=== PATIENT | male | born 1960 | race Hispanic/Latino ===

== ENCOUNTER 2020-05-30 06:40 | Inpatient (IN) | payer OTHER ==
[2020-05-30] MEDS ORDERED: Ondansetron PF 4 MG/2 ML Vial ONE (06:47)
[2020-05-30] MEDS ORDERED: Morphine 4 MG/ML VIAL ONE ×2 (06:47→09:08)
[2020-05-30 07:22] LABS: ALT (SGPT) 598 U/L (8-55); AST (SGOT) 280 U/L (5-34); Alkaline Phosphatase 983 U/L (40-110); Anion Gap 17 mmol/L (10-20); BUN (Urea Nitrogen) 17 mg/dL (8.4-25.7); Bilirubin, Total 0.8 mg/dL (0.2-1.2); Calc. Creatinine Clearance 0 mL/min (70-130); Calcium 9.2 mg/dL (7.8-10.44); Carbon Dioxide 24 mmol/L (22-29); Chloride 100 mmol/L (98-107); Estimated GFR-MDRD 61; Globulin 2.8 g/dL (2.4-3.5); Glucose 93 mg/dL (70-105); Lipase 27 U/L (8-78); Potassium 4.5 mmol/L (3.5-5.1); Protein, Total 6.8 g/dL (6.0-8.3); Sodium 136 mmol/L (136-145)
[2020-05-30 07:35] LABS: Hemoglobin 17.4 g/dL (14.0-18.0); Mean Corpuscular HGB CONC 33.7 g/dL (32.0-36.0); Mean Corpuscular Hemoglobin 30.1 pg (27.0-31.0); Mean Corpuscular Volume 89.2 fL (78.0-98.0); Mean Platelet Volume 9.6 fL (7.4-10.4); Platelet Count 90 thou/uL (130-400); RBC Distribution Width 13.7 % (11.5-14.5); Red Blood Cell (RBC) Count 5.79 mill/uL (4.70-6.10)
[2020-05-30 07:36] LABS: Band 3 % (5-11); Eosinophils 1 % (0-10); Lymphocytes 22 % (21-51); MDiff Complete? YES; Monocytes 3 % (0-10); Neutrophil 53 % (42-75); Platelet Morphology Comment Appears Decreased; Reactive Lymphocytes 8 % (0-10); Reflex for Review?? YES
[2020-05-30 08:17] LABS: Bacteria/HPF None Seen HPF (None Seen); Bilirubin 1+ (Negative); Blood, Urine Negative (Negative); Clarity Clear (Clear); Glucose, Urine (Dipstick) Normal (Negative); Ketone, Urine Negative (Negative); Leukocyte Negative Leu/uL (Negative); Nitrite Negative (Negative); Protein, Urine (Dipstick) 50 mg/dL (Neg-Trace); RBC/HPF 0-3 HPF (0-3); Specific Gravity, Urine 1.029 (1.002-1.036); Squamous Epithelial 0-3 HPF (0-3); WBC/HPF 0-3 HPF (0-3)
[2020-05-30 08:26] LABS: HIV (1/2) Antibody/Antigen Non-Reactive (NonReactive); HIV 1/2 INDEX 0.06 S/CO (<1.00)
--- NOTE | 2020-05-30 08:34 | CT ---
Exam: Chest CT with contrast Abdomen CT with contrast Pelvic CT with contrast HISTORY: Abdominal pain. Left upper quadrant pain. Symptoms are worsening for last month. Correlation: None COMPARISON: None FINDINGS: Chest CT: Mediastinum: Extensive mediastinal lymphadenopathy. Rolling Attendant enlarged right paratracheal lymph node measures 1.9 x 1.0 cm. Lower neck and axilla: There are enlarged right and left axillary lymph nodes measuring 1.4 x 1.8 and 1.3 x 1.1 cm respectively. Aorta: Normal caliber. Minimal atherosclerosis. Heart: Normal heart size. No significant pericardial fluid. Trachea and central bronchi: Patent Pleural spaces: No pleural effusion Right lung: Dependent atelectatic changes. Mild emphysematous changes without mass, consolidation or suspicious nodule. Left lung:Dependent atelectatic changes. Mild emphysematous changes without mass, consolidation or harper spicious nodule. Pneumothorax: None Abdomen CT: Gallbladder: Unremarkable Portal vein: Patent Liver: Homogeneous enhancement. There is mild hepatomegaly.. Spleen: There is splenomegaly with ill-defined hypodensities in the spleen, measuring 2.6 x 2.5 and 2 .8 x 2.3 cm. Spleen is enlarged measuring 19.7 cm. Pancreas: Appropriate enhancement Adrenal glands: Appropriate enhancement Lymphadenopathy: Markedly enlarged lymph nodes noted in the gastrohepatic ligament, periportal region . Rolling Attendant enlarged gastric hepatic lymph node measures 1.4 x 1.5 cm. Enlarged. Portal lymph node measures 4.4 x 2.9 cm. Additional lymph nodes are noted in the epigastric region. Kidneys: Symmetric enhancement. No obstructive uropathy. Mesentery: No mass, free air or free fluid. There are scattered mildly enlarged mesenteric lymph node s. There are enlarged aortocaval lymph nodes. Rolling Attendant lymph node measures 1.6 x 1.4 cm. Alimentary canal: Limited evaluation by the lack of oral contrast. No evidence of a bowel obstruction . Normal ileocecal junction. Normal caliber appendix. Scattered fecal material in a nondistended, nondilated colon. Occasional diverticulum. No diverticulitis. Pelvis CT: Pelvic mass, or free air. There is a trace amount of free fluid in the pelvis. Urinary bladder is unr emarkable. There are large bilateral inguinal/external iliac lymph nodes. Additional mildly enlarged lymph nodes are noted along the external iliac chain. Osseous structures:There are no lytic or blastic lesions in the osseous. IMPRESSION: 1. Extensive lymphadenopathy and splenomegaly. Findings are worrisome for possible lymphoma. Percutan eous CT-guided biopsy versus ultrasound-guided biopsy of the axillary lymph nodes recommended tissue diagnosis.
--- NOTE | 2020-05-30 09:27 | CT ---
CT NECK SOFT TISSUES WITH CONTRAST: DATE: 05/30/2020. TIME: 7:53 AM. HISTORY: A 59-year-old male with neck pain, sore throat with purulent drainage. FINDINGS: The bilateral palatine tonsils are enlarged, but the right one is asymmetrically significantly larger than the left. The lingual tonsil is mildly enlarged. The adenoids are not enlarged. There is an abnormally large number of mildly enlarged cervical lymph nodes including levels IB, II, III, IV, and V bilaterally. Many of them are less than 1 cm but abnormally round in shape. Others a re larger than 1.5 cm. The largest is a right supraclavicular level IV lymph node measuring approxima tely 2.7 x 2.7 x 2.4 cm. There is partial visualization of a large number of abnormally enlarged mediastinal lymph nodes and b ilateral axillary lymph nodes. No major pathology identified involving larynx or thyroid gland. Trachea is patent. 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 No abscess. No destructive osseous lesion. IMPRESSION: 1. Diffuse bilateral pathologic cervical, mediastinal, and axillary lymphadenopathy. Malignant neop lastic process is highly suspected, especially lymphoma, and other lymphoproliferative disorders. 2. Enlargement of bilateral palatine tonsils, right side asymmetrically much larger than left. This could either represent malignancy such as lymphoma or squamous cell carcinoma, or infection, i.e. to nsillitis. Given the other findings, lymphoma is favored. CODE T
--- NOTE | 2020-05-30 10:19 | PDOC.HHP ---
Hospitalist HPI - History of Present Illness Abdominal pain History of Present Illness: PCP: Priti Connell The patient is a 59-year-old male with a past medical history significant for smoking presents to the emergency room for the above complaint. The patient reports feeling generally unwell over the past month. Approximately 3 weeks ago, he developed some epigastric discomfort, described as "indigestion", exacerbated with deep inhalation, relieved by nothing. At that time, he denied any SOB or cough. No heart palpitations or swelling his lower extremities. No history of DVT/PE. Smoking is his only cardiovascular risk factor. He does not use any illicit drugs. He was seen at an [facility], swabbed for COVID infection, which was negative. He also had a chest x-ray which was unremark able.He was given medication for acid reflux and steroid for respiratory symptoms. Approximately 1 week later, he developed a sore throat and had some abdominal discomfort. His reports that his right tonsil "looked swollen and infected". He believes his right tonsil "popped open", expressing purulent drainage, which he swallowed. At that time, he reported odynophagia. He denied any dysphagia or difficulty breathing. Denied any fever or chills. Denies any hematemesis, diarrhea, hematochezia, melena. He was tested for hepatitis A, B, and C which he reports was negative. He was prescribed Augmentin, which he has not completed yet. Today, he developed severe left-sided abdominal pain, so intense that he felt like he had to crawl on the floor and could not walk. Reports some associated nausea which is exacerbated with eating. Reports a decreased oral intake. Reports some associated dark-colored urine, reports stooling per usual. Denies dysuria. Denies any hematochezia or melena. He has had no fever. For these reasons, he came to the emergency department for further evaluation. ED Course: VITAL SIGNS ThuMay 30, 2020 06:42 CRYS [place] Brianna BP: 142/94, Pulse: 107, Resp: 20, Temp: 98.1 (Oral), Pain: 10, O2 sat: 98 on (Room Air), Time: 05/30/2020 06:42. VITAL SIGNS ThuMay 30, 2020 06:54 CRYS [place] Julia BP: 132/105, Pulse: 104, Resp: 20, Pain: 8, O2 sat: 99 on (Room Air), Time: 05/30/2020 06:54. VITAL SIGNS ThuMay 30, 2020 07:30 CRYS [place] Melanie BP: 153/96, MAP: 115, Pulse: 131, Resp: 19, Pain: 8, O2 sat: 99 on (Room Air), Time: 05/30/2020 07:30. VITAL SIGNS ThuMay 30, 2020 08:30 CRYS [place] Melanie BP: 129/91, MAP: 103, Pulse: 99, Resp: 16, O2 sat: 99 on (Room Air), Time: 05/30/2020 08:30. Medication Administration: morphine injection 4 mg IV Push Given 09:14 05/30/2020 ondansetron HCl intravenous 4 mg IV Push Given 06:52 05/30/2020 morphine injection 4 mg IV Push Given 06:52 05/30/2020 Hospitalist ROS - Review of Systems Constitutional: reports: malaise (X1 month). denies: fever, chills ENT: reports: throat pain (Reports expressing purulent drainage) Respiratory: reports: pleuritic pain (With deep inhalation). denies: cough, shortness of breath Cardiovascular: denies: chest pain, palpitations, edema, light headedness Gastrointestinal: reports: nausea, abdominal pain (Left-sided). denies: vomiting, diarrhea, constipation, melena, hematochezia Genitourinary: reports: other (Reports darkened urine). denies: dysuria, frequency, hematuria Skin: denies: rash, bruising Neurological: denies: incoordination, change in speech, confusion All other systems reviewed; all pertinent +/- noted in HPI/Subj - Medication Medications: omeprazole ThuMay 30, 2020 06:50 CRYS [place] Julia capsule,delayed release(DR/EC) : Strength - 40 mg : ORAL Patient Dose: 40 mg Oral once a day. predniSONE ThuMay 30, 2020 06:50 CRYS [place] Julia tablet : Strength - 10 mg : ORAL Patient Dose: 10 mg Oral 4 times a day. amoxicillin-pot clavulanate ThuMay 30, 2020 06:51 CRYS [place] Julia tablet : Strength - 500 mg-125 mg : ORAL Patient Dose: 1 tab(s) Oral 2 times a day. Allergies: NKDA Hospitalist History - Past Medical History Source: patient, family, RN notes reviewed Cardiac: reports: no pertinent history Pulmonary: reports: no pertinent history MOHEL: reports: no pertinent history Gastrointestinal: reports: no pertinent history - Past Surgical History Past Surgical History: reports: Hernia Repair - Family History Family History: denies: cancer, cardiac disorder, cerebrovascular accident - Social History Smoking Status: Current every day smoker (2 packs/day x 40 years) Tobacco Type: cigarettes Alcohol: reports: None Drugs: reports: none Living Situation: With Family Occupation: Works for [employer] Activity level: independent ambulation - Exam General Appearance: NAD, awake alert Eye: PERRL, anicteric sclera ENT: normocephalic atraumatic, dry oral mucosa ENT - other findings: Bilateral cervical lymphadenopathy, nontender to palpation Neck: supple, symmetric, no JVD Heart: RRR, no murmur, no gallops, no rubs, normal peripheral pulses Respiratory: CTAB, no wheezes, no rales, no ronchi, normal chest expansion, no tachypnea Gastrointestinal: soft, normal bowel sounds, no bruit, no guarding, no rigidity, tender to palpation (Mildly tender to palpation left side), distended (Mildly) Gastrointestinal - other findings: Negative Gore sign Extremities: no cyanosis, no edema Skin: no rashes Neurological: normal sensation to touch, no weakness, no focal deficits Musculoskeletal: normal tone, normal strength Psychiatric: normal affect, A&O x 3 Hospitalist Results - Labs Result Diagrams: 05/30/20 06:52 05/30/20 06:52 Lab results: WBC 15.0 thou/uL (4.8-10.8) H 05/30/20 06:52 Hgb 17.4 g/dL (14.0-18.0) 05/30/20 06:52 Hct 51.6 % (42.0-52.0) 05/30/20 06:52 MCV 89.2 fL (78.0-98.0) 05/30/20 06:52 Plt Count 90 thou/uL (130-400) L 05/30/20 06:52 Band Neuts % (Manual) 3 % (5-11) L 05/30/20 06:52 Sodium 136 mmol/L (136-145) 05/30/20 06:52 Potassium 4.5 mmol/L (3.5-5.1) 05/30/20 06:52 Chloride 100 mmol/L (98-107) 05/30/20 06:52 Carbon Dioxide 24 mmol/L (22-29) 05/30/20 06:52 BUN 17 mg/dL (8.4-25.7) 05/30/20 06:52 Creatinine 1.21 mg/dL (0.7-1.3) 05/30/20 06:52 Glucose 93 mg/dL (70-105) 05/30/20 06:52 Calcium 9.2 mg/dL (7.8-10.44) 05/30/20 06:52 Total Bilirubin 0.8 mg/dL (0.2-1.2) 05/30/20 06:52 AST 280 U/L (5-34) H 05/30/20 06:52 ALT 598 U/L (8-55) H 05/30/20 06:52 Alkaline Phosphatase 983 U/L (40-110) H 05/30/20 06:52 Creatine Kinase 10 U/L (30-200) L 05/30/20 06:52 Serum Total Protein 6.8 g/dL (6.0-8.3) 05/30/20 06:52 Albumin 4.0 g/dL (3.5-5.0) 05/30/20 06:52 Lipase 27 U/L (8-78) 05/30/20 06:52 Urine Ketones Negative mg/dL (Negative) 05/30/20 08:03 Urine Blood Negative (Negative) 05/30/20 08:03 Urine Nitrite Negative (Negative) 05/30/20 08:03 Ur Leukocyte Esterase Negative Arsenio/uL (Negative) 05/30/20 08:03 Urine RBC 0-3 HPF (0-3) 05/30/20 08:03 Urine WBC 0-3 HPF (0-3) 05/30/20 08:03 Ur Squamous Epith Cells 0-3 HPF (0-3) 05/30/20 08:03 Urine Bacteria None Seen HPF (None Seen) 05/30/20 08:03 - Radiology Interpretation CT scan - chest Status: report reviewed by me Additional Comment: IMPRESSION: 1. Extensive lymphadenopathy and splenomegaly. Findings are worrisome for possible lymphoma. Percutaneous CT-guided biopsy versus ultrasound-guided biopsy of the axillary lymph nodes recommended tissue diagnosis. Other Status: report reviewed by me Additional Comment: CT soft tissue Neck IMPRESSION: 1. Diffuse bilateral pathologic cervical, mediastinal, and axillary lymphadenopathy. Malignant neoplastic process is highly suspected, especially lymphoma, and other lymphoproliferative disorders. 2. Enlargement of bilateral palatine tonsils, right side asymmetrically much larger than left. This could either represent malignancy such as lymphoma or squamous cell carcinoma, or infection, i.e. tonsillitis. Given the other findings, lymphoma is favored. Hospitalist H&P A/P - Problem (1) Abdominal pain Code(s): R10.9 - UNSPECIFIED ABDOMINAL PAIN Status: Acute (2) Transaminitis Code(s): R74.0 - NONSPEC ELEV OF LEVELS OF TRANSAMNS & LACTIC ACID DEHYDRGNSE Status: Acute (3) Sore throat Code(s): J02.9 - ACUTE PHARYNGITIS, UNSPECIFIED Status: Acute (4) Thrombocytopenia Code(s): D69.6 - THROMBOCYTOPENIA, UNSPECIFIED Status: Acute (5) Tobacco abuse Code(s): Z72.0 - TOBACCO USE Status: Acute - Plan Plan: 59/M with PMH of smoking presents to the emergency department for severe abdominal pain and sore throat. Admit to oncology floor, inpatient status. Expected length of stay greater than 2 midnights. Presented tachycardic with normal BP, RR, SPO2, afebrile. CT soft tissue neck 1. diffuse bilateral pathological cervical, mediastinal and axillary lympha denopathy. Malignant neoplastic process is highly suspected, especially lymphoma, and other lymphoproliferative disorders. 2. Enlargement of bilateral palatine tonsils, right greater than left, could represent malignancy versus infection. Given other findings, lymphoma is favored. CT chest, abdomen, pelvis Extensive lymphadenopathy and splenomegaly. Worrisome for possible lymphoma. Recommend CT-guided biopsy versus ultrasound-guided biopsy of axillary lymph nodes. WBCs 15, platelets 90 T bili 0.8, AST 280, ALT 598, ALP 983, lipase 27 HIV negative. UA + urobilinogen, bilirubin, protein #Abdominal pain Given CT findings, malignant neoplastic process is highly expected, concern for lymphoma. Consult oncology. IV fluids, analgesia, antiemetics, PPI. Clear liquid diet. Repeat labs in a.m. #Transaminitis Reports recently tested negative for hepatitis A, B, and C. We will order RUQ. Consult GI. Avoid hepatotoxic medications. Recheck levels in a.m. #Sore throat Presented tachycardic with elevated WBCs. CT, cannot rule out infectious process. Will start Unasyn IVPB. Check LA and pro calcitonin. Give IV fluids. #Thrombocytopenia Platelets 90. Likely related to malignant process. No signs of bleeding/excessive bruising. Recheck levels in the a.m. #Tobacco abuse 2 pack/day history. Unwilling to quit. Start NRT therapy. Counseled tobacco cessation. SCDs for DVT prophylaxis. Protonix for GI prophylaxis. Full code. Medical power of health care attorney is his spouse Kelly at [phone]. Discussed case with Dr. Carlton.
[2020-05-30] MEDS ORDERED: Senokot S 8.6-50 MG TAB PO PRN (10:30)
[2020-05-30] MEDS ORDERED: Ondansetron ODT 4 MG TAB PO PRN (10:30)
[2020-05-30] MEDS ORDERED: Calcium Carbonate 500 MG ChewTAB PO PRN (10:30)
[2020-05-30] MEDS ORDERED: Morphine 4 MG/ML VIAL SLOW IVP PRN (10:33)
[2020-05-30] MEDS ORDERED: traMADol HCl 50 MG TAB PO PRN (10:35)
[2020-05-30 10:37] VITALS: BMI 25.2
[2020-05-30] MEDS ORDERED: Ondansetron PF 4 MG/2 ML Vial IVP PRN (10:45)
[2020-05-30] MEDS ORDERED: Ondansetron ODT 4 MG TAB SL PRN (10:45)
[2020-05-30] MEDS ORDERED: Acetaminophen 325 MG TAB PO PRN (10:45)
[2020-05-30] MEDS ORDERED: HYDROcodone/Acetaminophen 5/325 mg Tablet PO PRN ×2 (10:45)
[2020-05-30 11:09] LABS: Lactic Acid 1.4 mmol/L (0.5-2.2)
[2020-05-30] MEDS ORDERED: Lidocaine 2% Viscous Solution 10 ML, Aluminum & Magnesium Hydroxide 30 ML SSW SCH (11:15)
[2020-05-30] MEDS ORDERED: Clindamycin/D5W 600 MG in Premix Bag 1 BAG IVPB SCH (12:00)
[2020-05-30] MEDS ORDERED: Nicotine 14 MG PATCH TD SCH (12:00)
--- NOTE | 2020-05-30 12:19 | ULT ---
[facility] COMPARISON:None available HISTORY:Left upper quadrant pain, elevated liver enzymes TECHNIQUE: Multiplanar grayscale sonographic imaging of theright upper quadrant FINDINGS:The pancreas is grossly unremarkable but partially obscured by bowel gas, particularly the r egion of the pancreatic head. No focal liver lesion or intrahepatic biliary dilatation. There are enlarged lymph nodes in the christina hepatis, better evaluated on CT examination also performe d 05/30/2020. No gallbladder wall thickening or pericholecystic fluid. No gallstones are noted. The common bile duct measures 3 mm, within normal limits. The right kidney measures 11 cm in craniocaudal dimension and demonstrates no stone, hydronephrosis, or mass. 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 IMPRESSION: Christina hepatis lymphadenopathy suspicious for lymphoma/metastatic disease. No evidence for cholelithiasis, cholecystitis, or biliary dilatation.
[2020-05-30] MEDS: Sodium Chloride 0.9% 1,000 ML IV SCH ×2 (12:39→23:54)
[2020-05-30] MEDS: Ampicillin/Sulbactam 1.5 GM in Sodium Chloride 0.9% 100 ML IVPB SCH ×3 (12:49→23:56)
[2020-05-30] MEDS: Morphine 4 MG/ML VIAL SLOW IVP PRN ×3 (12:55→23:59)
[2020-05-30] MEDS: Ondansetron PF 4 MG/2 ML Vial IVP PRN (13:47)
[2020-05-30] MEDS ORDERED: Promethazine HCl 25 MG in Sodium Chloride 0.9% 50 ML IVPB SCH (15:45)
[2020-05-30] MEDS ORDERED: Iopamidol-370 76% 500 ML 1 ML ONE (16:13)
[2020-05-30 16:54] LABS: SARS-CoV-2 MS2 Positive; SARS-CoV-2 N Gene Negative; SARS-CoV-2 S Gene Negative; SARS-CoV-2 by NAA Not Detected (NotDetected); SARS-CoV-2 orf1ab Negative
[2020-05-30] MEDS ORDERED: Morphine 4 MG/ML VIAL SLOW IVP SCH (20:00)
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
[2020-05-31] MEDS: Morphine 4 MG/ML VIAL SLOW IVP PRN ×2 (04:16→10:55)
[2020-05-31] MEDS: Ampicillin/Sulbactam 1.5 GM in Sodium Chloride 0.9% 100 ML IVPB SCH ×3 (05:17→17:46)
[2020-05-31 06:08] LABS: ALT (SGPT) 356 U/L (8-55); AST (SGOT) 115 U/L (5-34); Albumin 3.3 g/dL (3.5-5.0); Alkaline Phosphatase 710 U/L (40-110); Anion Gap 12 mmol/L (10-20); BUN (Urea Nitrogen) 14 mg/dL (8.4-25.7); Bilirubin, Total 0.7 mg/dL (0.2-1.2); Calc. Creatinine Clearance 83 mL/min (70-130); Calcium 8.1 mg/dL (7.8-10.44); Carbon Dioxide 23 mmol/L (22-29); Chloride 102 mmol/L (98-107); Estimated GFR-MDRD 74; Globulin 2.3 g/dL (2.4-3.5); Glucose 69 mg/dL (70-105); Potassium 4.2 mmol/L (3.5-5.1); Protein, Total 5.6 g/dL (6.0-8.3); Sodium 133 mmol/L (136-145); Uric Acid 6.8 mg/dL (3.5-7.2)
[2020-05-31 06:34] LABS: Band 8 % (5-11); Lymphocytes 20 % (21-51); MDiff Complete? YES; Mean Corpuscular HGB CONC 33.1 g/dL (32.0-36.0); Mean Corpuscular Hemoglobin 29.6 pg (27.0-31.0); Mean Corpuscular Volume 89.4 fL (78.0-98.0); Mean Platelet Volume 9.7 fL (7.4-10.4); Metamyelocyte 1 % (0-0); Monocytes 7 % (0-10); Neutrophil 48 % (42-75); Platelet Count 77 thou/uL (130-400); Platelet Morphology Comment Appears Decreased; RBC Distribution Width 13.6 % (11.5-14.5); Reactive Lymphocytes 6 % (0-10); Red Blood Cell (RBC) Count 5.06 mill/uL (4.70-6.10); White Blood Cell (WBC) Count 15.5 thou/uL (4.8-10.8)
[2020-05-31] MEDS: Nicotine 21 MG PATCH TD SCH (08:42)
[2020-05-31] MEDS: Sodium Chloride 0.9% 1,000 ML IV SCH (08:43)
[2020-05-31] MEDS: Pantoprazole 40 MG VIAL IVP SCH (08:43)
--- NOTE | 2020-05-31 12:47 | PDOC.HOSPP ---
- Subjective Encounter Date: 05/31/20 Encounter Time: 11:40 Subjective: Patient is trying to have baselines he has no trouble swallowing no pain. His pain is mostly localized in the abdominal area. Flow cytometry results pending. - Objective Vital Signs & Weight: Vital Signs (12 hours) Temp Pulse Resp BP BP Pulse Ox 05/31/20 12:00 99.5 F 91 18 159/80 H 95 05/31/20 08:00 98.0 F 93 18 160/78 H 94 L 05/31/20 04:00 98.2 F 94 16 130/78 94 L Weight Weight 170 lb 9 oz I&O: 05/30/20 05/31/20 06/01/20 06:59 06:59 06:59 Intake Total 1680 Balance 1680 Result Diagrams: 05/31/20 05:35 05/31/20 05:35 Hospitalist ROS - Medication Medications: Active Medications Generic Name Dose Route Start Last Admin Trade Name Freq PRN Reason Stop Dose Admin Sodium Chloride 1,000 mls @ 100 mls/hr 05/30/20 10:30 05/31/20 08:43 Normal Saline 0.9% IV 1,000 mls .Q10H BERNARDINO Administration Ampicillin Sodium/Sulbactam 100 mls @ 200 mls/hr 05/30/20 12:00 05/31/20 11:00 Sodium 1.5 gm/ Sodium Chloride IVPB 100 mls Q6HR BERNARDINO Administration Morphine Sulfate 6 mg 05/30/20 19:48 05/31/20 10:55 Morphine 4 Mg/Ml Vial SLOW IVP 6 mg Q4H PRN Administration Moderate to Severe Pain (6-10) Nicotine 21 mg 05/31/20 09:00 05/31/20 08:42 Nicotine 21 Mg Patch TD 21 mg DAILY BERNARDINO Administration Ondansetron HCl 4 mg 05/30/20 10:30 05/30/20 13:47 Ondansetron Pf 4 Mg/2 Ml Vial IVP 4 mg Q6H PRN Administration Nausea/Vomiting Pantoprazole Sodium 40 mg 05/31/20 09:00 05/31/20 08:43 Pantoprazole 40 Mg Vial IVP 40 mg DAILY BERNARDINO Administration Sodium Chloride 10 ml 05/30/20 10:30 05/31/20 04:16 Flush - Normal Saline 10 Ml Syringe IVF 10 ml PRN PRN Administration Saline Flush - Exam General Appearance: NAD, awake alert General - other findings: Cervical lymph node palpable as well as axillary on the left more so Eye: PERRL ENT: normocephalic atraumatic Neck: supple Heart: RRR Respiratory: CTAB, normal chest expansion Gastrointestinal: soft, normal bowel sounds Neurological: cranial nerve grossly intact, no focal deficits Psychiatric: A&O x 3 Hosp A/P - Plan CT soft tissue neck 1. diffuse bilateral pathological cervical, mediastinal and axillary lymphadenopathy. Malignant neoplastic process is highly suspected, especially lymphoma, and other lymphoproliferative disorders. 2. Enlargement of bilateral palatine tonsils, right greater than left, could represent malignancy versus infection. Given other findings, lymphoma is favored. CT chest, abdomen, pelvis Extensive lymphadenopathy and splenomegaly. Worrisome for possible lymphoma. Recommend CT-guided biopsy versus ultrasound-guided biopsy of axillary lymph nodes. #Abdominal pain Given CT findings, malignant neoplastic process is highly expected, concern for lymphoma. #Transaminitis Reports recently tested negative for hepatitis A, B, and C. We will order RUQ. Consulted GI. Avoid hepatotoxic medications. Recheck levels in a.m. #Sore throat Tonsillitis versus malignancy with a squamous cell carcinoma -Needs to follow-up. Will start Unasyn IVPB. #Thrombocytopenia Platelets 90K. Likely related to malignant process. No signs of bleeding/excessive bruising. #Tobacco abuse 2 pack/day history. Unwilling to quit. Start NRT therapy. Counseled tobacco cessation. -Oncology note reviewed. -Continue with Unasyn until more clinical picture evolves. -PET scan as an outpatient. COVID negative HIV negative -LFTs trending down today alkaline phosphatase 03/16/1980 AST 115 ALT 356 Flow cytometry results pending.
[2020-05-31] MEDS ORDERED: HYDROcodone/Acetaminophen 5/325 mg Tablet PO PRN (15:48)
--- NOTE | 2020-05-31 15:51 | PDOC.MOPN ---
Interval History: pain controlled with IV morphine - Vital Signs Vital Signs: Vital Signs (12 hours) Temp Pulse Resp BP BP Pulse Ox 05/31/20 12:00 99.5 F 91 18 159/80 H 95 05/31/20 08:00 98.0 F 93 18 160/78 H 94 L 05/31/20 04:00 98.2 F 94 16 130/78 94 L Weight Weight 170 lb 9 oz - Physical Exam General: Alert, Oriented x3, No acute distress HEENT: Atraumatic, PERRLA, EOMI, Mucous membr. moist/pink Lungs: Clear to auscultation, Normal air movement Abdomen: Normal bowel sounds, Soft, No tenderness, No hepatospenomegaly, No masses Extremities: Other (lymphadenopathy) Neurological: Normal speech - Labs Result Diagrams: 05/31/20 05:35 05/31/20 05:35 Lab results: Laboratory Results - last 24 hr 05/31/20 05:35: Lactate Dehydrogenase 806 H 05/31/20 05:35: WBC 15.5 H, RBC 5.06, Hgb 15.0, Hct 45.2, MCV 89.4, MCH 29.6, MCHC 33.1, RDW 13.6, Plt Count 77 L, MPV 9.7, Neutrophils % (Manual) 48, Band Neuts % (Manual) 8, Lymphocytes % (Manual) 20 L, Reactive Lymphs % 6, Monocytes % (Manual) 7, Metamyelocytes % (Man) 1 H, Other Cell Type 10, Plt Morphology Comment Appears Decreased L 05/31/20 05:35: Sodium 133 L, Potassium 4.2, Chloride 102, Carbon Dioxide 23, Anion Gap 12, BUN 14, Creatinine 1.03, Estimated GFR (MDRD) 74, Glucose 69 L, Uric Acid 6.8, Calcium 8.1, Total Bilirubin 0.7, AST 115 H, ALT 356 H, Alkaline Phosphatase 710 H, Serum Total Protein 5.6 L, Albumin 3.3 L, Globulin 2.3 L, Albumin/Globulin Ratio 1.4 05/30/20 09:56: SARS-CoV-2 (PCR) Not Detected Status: lab reviewed by me A/P - Problem (1) Abdominal pain Current Visit: Yes Code(s): R10.9 - UNSPECIFIED ABDOMINAL PAIN Status: Acute (2) Lymphadenopathy Current Visit: Yes Code(s): R59.1 - GENERALIZED ENLARGED LYMPH NODES Status: Acute (3) Thrombocytopenia Current Visit: Yes Code(s): D69.6 - THROMBOCYTOPENIA, UNSPECIFIED Status: Acute - Plan Plan: 1. await flow cytometry 2. depending on results, may need excisional lymph node biopsy 3. add norco for pain, limit morphine if possible
[2020-05-31] MEDS: HYDROcodone/Acetaminophen 5/325 mg Tablet PO PRN ×2 (16:34→20:38)
[2020-06-01] MEDS: Ampicillin/Sulbactam 1.5 GM in Sodium Chloride 0.9% 100 ML IVPB SCH ×5 (00:03→23:17)
[2020-06-01] MEDS: Sodium Chloride 0.9% 1,000 ML IV SCH ×4 (00:03→19:48)
--- NOTE | 2020-06-01 01:00 | CON ---
DATE OF CONSULTATION: 05/31/2020 REQUESTING PROVIDER: Dr. Murillo. REASON FOR CONSULTATION: Elevated LFTs and abdominal pain. HISTORY OF PRESENT ILLNESS: Maureen Myers is a 59-year-old gentleman with a long history of tobacco abuse, who has otherwise been fairly healthy. About 3 weeks ago, he started having some sore throat and tonsillar swelling and then yesterday, he had a fairly sudden onset of significant pain in the left upper quadrant, which is worse with deep inspiration, not really related to eating or drinking at all. There has been no weight loss and no jaundice. He was actually undergoing some outpatient workup in the past couple of weeks and was found to have significantly elevated LFTs, but the left upper quadrant abdominal pain was new. Upon presentation, he had labs again showing LFT elevation with alkaline phosphatase 983, AST 280, ALT 598, LDH elevated to 806 and a leukocytosis with WBC 15.5, and peripheral smear suspicious for leukemia or lymphoma. He also had a CT of the neck, chest, abdomen, and pelvis and this demonstrates extensive diffuse lymphadenopathy in the cervical, mediastinal, bilateral axillary, periportal, mesenteric, and bilateral iliac regions. There is mild hepatomegaly and there is splenomegaly to 19.6 cm with multiple ill-defined hypodensities. Flow cytometry was sent after Oncology evaluation and is pending. The patient has received morphine and Unasyn. He is feeling a lot better today. He has been tolerating his diet without any difficulty. REVIEW OF SYSTEMS: Full review of systems including constitutional, head, eyes, ears, nose, throat, GI, , cardiovascular, respiratory, musculoskeletal, neurologic systems is negative except as noted in the HPI. PAST MEDICAL HISTORY: Tobacco abuse and inguinal hernia repair. ALLERGIES: NO KNOWN DRUG ALLERGIES. OUTPATIENT MEDICATIONS: Prilosec and albuterol. INPATIENT MEDICATIONS: 1. Unasyn IV. 2. [place] p.r.n. 3. Nicotine patch. 4. Zofran p.r.n. 5. Protonix 40 mg IV daily. FAMILY HISTORY: Negative for malignancy that he is aware of. SOCIAL HISTORY: He has a 60+ pack-year history of smoking. He quit drinking alcohol about 10 years ago. PHYSICAL EXAMINATION: VITAL SIGNS: Temperature 99.5, pulse 91, blood pressure 159/80, and 95% oxygen saturation on room air. GENERAL: No acute distress. HEART: Regular rate and rhythm. LUNGS: Clear to auscultation bilaterally. ABDOMEN: Nondistended. Bowel sounds are present, soft, some tenderness to palpation with palpable splenomegaly in left upper quadrant. No guarding or rebound tenderness. EXTREMITIES: No peripheral edema. VESSELS: Radial pulses 2+ bilaterally. NEURO: Cranial nerves 2 through 12 intact bilaterally. No focal deficits. SKIN: No jaundice. No rashes were palpable. EYES: No scleral icterus. Extraocular movements intact. ENT: Mucous membranes moist. No oral lesions. LYMPH: He has cervical lymphadenopathy and quite striking axillary lymphadenopathy as well as bilateral iliac lymphadenopathy. LABORATORY STUDIES: WBC 15.5, hemoglobin 15.6, and platelets 77. Sodium 133, potassium 4.2, BUN 14, and creatinine 1.03. Total bilirubin 0.7; alkaline phosphatase is 710, down from 983 on admission; AST is 115, down from 280 on admission; ALT is 356, down from 598 on admission. Albumin 3.3. Lipase only 27. LDH elevated to 806. TSH 0.78. PSA 1.36. CK only 10. Viral hepatitis serologies all negative. HIV antibody negative. COVID PCR negative. Flow cytometry pending. Peripheral smear shows findings suspicious for leukemia or lymphoma. IMAGING STUDIES: Abdominal ultrasound shows lymphadenopathy at the dwayne hepatis, but normal-appearing gallbladder and common bile duct. CT of the neck, chest, abdomen, and pelvis demonstrates mild hepatomegaly, normal-appearing gallbladder. There is splenomegaly to 19.6 cm with multiple ill-defined hypodensities. There is extensive cervical mediastinal bilateral axillary, periportal, mesenteric and bilateral iliac lymphadenopathy. ASSESSMENT AND PLAN: 1. Left upper quadrant pain, likely secondary to splenomegaly. 2. Splenomegaly, likely represents presentation of lymphoma. 3. Extensive lymphadenopathy, lymphoma is suspected. Flow cytometry is pending. Oncology is following. 4. Elevated LFTs. I note the negative viral hepatitis serologies, also negative imaging findings for any biliary obstructive process. He does have extensive lymphadenopathy around the dwayne hepatis, but likely he probably has lymphoma infiltration of the liver which is behind the transaminase elevation. It would be reasonable to check EBV and CMV as well as check INR tomorrow morning, can trend the LFTs tomorrow. But really, no other liver specific workup is planned at this time. From a GI perspective, the patient could be discharged from the hospital once a clear plan has been outlined with Oncology followup. Thank you for the consultation. Please call anytime with questions or concerns. Job ID: [id number]
[2020-06-01] MEDS: Ondansetron PF 4 MG/2 ML Vial IVP PRN (03:34)
[2020-06-01 03:59] LABS: INR-International Normal Ratio 0.9; Prothrombin Time 12.4 sec (12.0-14.7)
[2020-06-01] MEDS: HYDROcodone/Acetaminophen 5/325 mg Tablet PO PRN ×4 (04:04→19:47)
[2020-06-01 04:30] LABS: ALT (SGPT) 279 U/L (8-55); AST (SGOT) 103 U/L (5-34); Albumin 3.2 g/dL (3.5-5.0); Alkaline Phosphatase 823 U/L (40-110); Anion Gap 14 mmol/L (10-20); BUN (Urea Nitrogen) 9 mg/dL (8.4-25.7); Bilirubin, Total 1.7 mg/dL (0.2-1.2); Calc. Creatinine Clearance 99 mL/min (70-130); Calcium 8.2 mg/dL (7.8-10.44); Carbon Dioxide 24 mmol/L (22-29); Chloride 103 mmol/L (98-107); Estimated GFR-MDRD 90; Globulin 2.3 g/dL (2.4-3.5); Glucose 82 mg/dL (70-105); Potassium 4.2 mmol/L (3.5-5.1); Protein, Total 5.5 g/dL (6.0-8.3); Sodium 137 mmol/L (136-145)
[2020-06-01] MEDS: Nicotine 21 MG PATCH TD SCH (08:46)
[2020-06-01] MEDS: Pantoprazole 40 MG VIAL IVP SCH (08:50)
--- NOTE | 2020-06-01 12:01 | PRG ---
DATE OF SERVICE: 06/01/2020 SUBJECTIVE: Mr. Myers is doing well. Abdominal discomfort is mild and stable. No nausea at this time. He is eating [place] food for lunch and tolerating it really well. He has no new complaints. OBJECTIVE: VITAL SIGNS: Temperature 97.9, pulse 82, blood pressure 165/88, and 92% oxygen saturation on room air. GENERAL: No acute distress. HEART: Regular rate and rhythm. LUNGS: Clear to auscultation bilaterally. ABDOMEN: Nontender to palpation. EXTREMITIES: No peripheral edema. LABORATORY STUDIES: INR 0.9. CMP shows total bilirubin up to 1.7, alkaline phosphatase 823, AST 103, ALT down to 279, overall LFTs are stable. CMV and Itzel Garirson virus serologies as well as flow cytometry are all pending. ASSESSMENT AND PLAN: 1. Left upper quadrant pain, appears to be secondary to splenomegaly, stable. 2. Extensive lymphadenopathy, lymphoma is suspected. Flow cytometry is still pending. Oncology is following. 3. Elevated liver function tests. Overall, these are stable over the past week. Awaiting Itzel Garrison virus and cytomegalovirus serologies. Viral hepatitis serologies and HIV are negative. Liver function test elevation is likely secondary to liver infiltration with probable lymphoma. Note, the INR is normal, suggesting normal liver function as expected. No other liver specific workup is planned at this time. From a GI perspective, the patient could be discharged from the hospital once a clear plan has been outlined with Oncology followup. GI will sign off. We will follow up results of serologies when they are available. Please call anytime with questions or concerns. Job ID: [id number]
--- NOTE | 2020-06-01 13:58 | PDOC.HOSPP ---
- Subjective Encounter Date: 06/01/20 Encounter Time: 09:10 Subjective: Patient is resting he has no complaints his abdominal pain seems to be better now. He is still waiting for flow cytometry readings which are pending. - Objective Vital Signs & Weight: Vital Signs (12 hours) Temp Pulse Resp BP Pulse Ox 06/01/20 07:33 97.9 F 82 20 165/88 H 92 L Weight Weight 170 lb 9 oz I&O: 05/31/20 06/01/20 06/02/20 06:59 06:59 06:59 Intake Total 1680 2140 Balance 1680 2140 Result Diagrams: 05/31/20 05:35 06/01/20 03:26 Hospitalist ROS - Medication Medications: Active Medications Generic Name Dose Route Start Last Admin Trade Name Freq PRN Reason Stop Dose Admin Hydrocodone Bitart/Acetaminophen 2 tab 05/31/20 15:48 06/01/20 08:48 Hydrocodone/Acetaminophen 5/325 Mg Tablet PO 2 tab Q4H PRN Administration Moderate to Severe Pain (6-10) Sodium Chloride 1,000 mls @ 100 mls/hr 05/30/20 10:30 06/01/20 08:59 Normal Saline 0.9% IV 1,000 mls .Q10H BERNARDINO Administration Ampicillin Sodium/Sulbactam 100 mls @ 200 mls/hr 05/30/20 12:00 06/01/20 12:59 Sodium 1.5 gm/ Sodium Chloride IVPB 100 mls Q6HR BERNARDINO Administration Morphine Sulfate 6 mg 05/30/20 19:48 05/31/20 10:55 Morphine 4 Mg/Ml Vial SLOW IVP 6 mg Q4H PRN Administration Moderate to Severe Pain (6-10) Nicotine 21 mg 05/31/20 09:00 06/01/20 08:46 Nicotine 21 Mg Patch TD 21 mg DAILY BERNARDINO Administration Ondansetron HCl 4 mg 05/30/20 10:30 06/01/20 03:34 Ondansetron Pf 4 Mg/2 Ml Vial IVP 4 mg Q6H PRN Administration Nausea/Vomiting Pantoprazole Sodium 40 mg 05/31/20 09:00 06/01/20 08:50 Pantoprazole 40 Mg Vial IVP 40 mg DAILY BERNARDINO Administration Sodium Chloride 10 ml 05/30/20 10:30 06/01/20 03:34 Flush - Normal Saline 10 Ml Syringe IVF 10 ml PRN PRN Administration Saline Flush - Exam General Appearance: NAD, awake alert Eye: PERRL ENT: normocephalic atraumatic Neck: supple Heart: RRR, normal peripheral pulses Respiratory: CTAB, normal chest expansion Gastrointestinal: soft, normal bowel sounds Neurological: no focal deficits Psychiatric: A&O x 3 Hosp A/P - Plan CT soft tissue neck 1. diffuse bilateral pathological cervical, mediastinal and axillary lymphadenopathy. Malignant neoplastic process is highly suspected, especially l ymphoma, and other lymphoproliferative disorders. 2. Enlargement of bilateral palatine tonsils, right greater than left, could represent malignancy versus infection. Given other findings, lymphoma is favored. CT chest, abdomen, pelvis Extensive lymphadenopathy and splenomegaly. Worrisome for possible lymphoma. Recommend CT-guided biopsy versus ultrasound-guided biopsy of axillary lymph nodes. #Abdominal pain Given CT findings, malignant neoplastic process is highly expected, concern for lymphoma. #Transaminitis Reports recently tested negative for hepatitis A, B, and C. We will order RUQ. Consulted GI. Avoid hepatotoxic medications. Recheck levels in a.m. #Sore throat Tonsillitis versus malignancy with a squamous cell carcinoma -Needs to follow-up. Will start Unasyn IVPB. #Thrombocytopenia Platelets 90K. Likely related to malignant process. No signs of bleeding/excessive bruising. #Tobacco abuse 2 pack/day history. Unwilling to quit. Start NRT therapy. Counseled tobacco cessation. -Oncology note reviewed. -Continue with Unasyn until more clinical picture evolves. -PET scan as an outpatient. COVID negative HIV negative -LFTs trending down today alkaline phosphatase 03/16/1980 AST 115 ALT 356 Flow cytometry results pending. 25th Splenomegaly Left upper quadrant discomfort secondary to splenomegaly Transaminitis elevation probably due to lymphoma infiltration versus meds. -CMV and Itzel-Garrison virus serology pending. Again flow cytometry results pending. -NC is swallowing without any pain, no exudate noted, which Unasyn to Augmentin. Follow-up with flaccid it amatory results as well as oncology recommendations. Once plan is in place by oncologist, then he can be discharged home. GI signed off.
--- NOTE | 2020-06-01 14:20 | PDOC.MOPN ---
Interval History: no complaints other than anxiety over diagnosis. - Vital Signs Vital Signs: Vital Signs (12 hours) Temp Pulse Resp BP Pulse Ox 06/01/20 07:33 97.9 F 82 20 165/88 H 92 L Weight Weight 170 lb 9 oz - Physical Exam General: Alert, Oriented x3, No acute distress HEENT: Atraumatic, PERRLA, EOMI, Mucous membr. moist/pink Lungs: Clear to auscultation, Normal air movement Cardiovascular: Regular rate, Normal S1, Normal S2, No murmurs, Gallops, Rubs Abdomen: Normal bowel sounds, Soft, No tenderness, No hepatospenomegaly, No masses Neurological: Normal speech Psych/Mental Status: Mental status NL - Labs Result Diagrams: 05/31/20 05:35 06/01/20 03:26 Lab results: Laboratory Results - last 24 hr 06/01/20 03:26: PT 12.4, INR 0.9 06/01/20 03:26: Sodium 137, Potassium 4.2, Chloride 103, Carbon Dioxide 24, Anion Gap 14, BUN 9, Creatinine 0.87, Estimated GFR (MDRD) 90, Glucose 82, Calcium 8.2, Total Bilirubin 1.7 H, AST 103 H, ALT 279 H, Alkaline Phosphatase 823 H, Serum Total Protein 5.5 L, Albumin 3.2 L, Globulin 2.3 L, [place] min/Globulin Ratio 1.4 Status: lab reviewed by me A/P - Problem (1) Abdominal pain Current Visit: Yes Code(s): R10.9 - UNSPECIFIED ABDOMINAL PAIN Status: Acute (2) Lymphadenopathy Current Visit: Yes Code(s): R59.1 - GENERALIZED ENLARGED LYMPH NODES Status: Acute (3) Thrombocytopenia Current Visit: Yes Code(s): D69.6 - THROMBOCYTOPENIA, UNSPECIFIED Status: Acute - Plan Plan: 1. flow cytometry pending 2. discussed with Dr. Jo, plan lymph node biopsy 3. home after biopsy if stable 4. continue norco for pain.
[2020-06-02] MEDS: HYDROcodone/Acetaminophen 5/325 mg Tablet PO PRN (02:02)
[2020-06-02] MEDS: Ondansetron PF 4 MG/2 ML Vial IVP PRN ×2 (02:07→08:47)
[2020-06-02] MEDS: Morphine 4 MG/ML VIAL SLOW IVP PRN (02:09)
[2020-06-02 04:54] LABS: Anion Gap 12 mmol/L (10-20); BUN (Urea Nitrogen) 7 mg/dL (8.4-25.7); Calc. Creatinine Clearance 106 mL/min (70-130); Calcium 8.2 mg/dL (7.8-10.44); Carbon Dioxide 26 mmol/L (22-29); Chloride 104 mmol/L (98-107); Estimated GFR-MDRD Greater than 90; Glucose 84 mg/dL (70-105); Sodium 138 mmol/L (136-145)
[2020-06-02 05:00] LABS: Hemoglobin 14.9 g/dL (14.0-18.0); Mean Corpuscular HGB CONC 33.6 g/dL (32.0-36.0); Mean Corpuscular Hemoglobin 29.9 pg (27.0-31.0); Mean Corpuscular Volume 88.9 fL (78.0-98.0); Mean Platelet Volume 10.4 fL (7.4-10.4); Platelet Count 82 thou/uL (130-400); RBC Distribution Width 13.8 % (11.5-14.5); Red Blood Cell (RBC) Count 4.98 mill/uL (4.70-6.10); White Blood Cell (WBC) Count 15.3 thou/uL (4.8-10.8)
[2020-06-02 05:01] LABS: Band 7 % (5-11); Eosinophils 3 % (0-10); Lymphocytes 12 % (21-51); MDiff Complete? YES; Monocytes 16 % (0-10); Neutrophil 44 % (42-75); Platelet Morphology Comment Appears Decreased; Reactive Lymphocytes 7 % (0-10)
[2020-06-02] MEDS: Ampicillin/Sulbactam 1.5 GM in Sodium Chloride 0.9% 100 ML IVPB SCH ×2 (05:45→13:35)
[2020-06-02] MEDS: Nicotine 21 MG PATCH TD SCH (08:12)
[2020-06-02] MEDS: Sodium Chloride 0.9% 1,000 ML IV SCH (08:48)
[2020-06-02] MEDS: Pantoprazole 40 MG VIAL IVP SCH (08:51)
[2020-06-02] MEDS ORDERED: Enoxaparin Sodium 40 MG/0.4 ML SYRINGE SC SCH (09:00)
[2020-06-02] MEDS ORDERED: Succinylcholine Chloride 20 MG/ML 10 ml SYRINGE FS ONE (09:07)
[2020-06-02] MEDS ORDERED: Lidocaine 1% PF 5 ML VIAL ONE (09:07)
[2020-06-02] MEDS ORDERED: Dexamethasone 20 MG/5 ML VIAL ONE (09:07)
[2020-06-02] MEDS ORDERED: PROPOFOL 200 MG/20 ML VIAL ONE (09:07)
[2020-06-02] MEDS ORDERED: Ondansetron PF 4 MG/2 ML Vial ONE (09:07)
[2020-06-02 09:41] VITALS: BP 162/78; TEMP 97.7
[2020-06-02] MEDS ORDERED: Bisacodyl 10 MG SUPP PR PRN (10:06)
[2020-06-02] MEDS ORDERED: Metoclopramide HCl 10 MG/2 ML VIAL ONE ×2 (11:54→12:16)
[2020-06-02] MEDS ORDERED: Scopolamine 1.5 mg/72 hour Patch ONE (11:54)
[2020-06-02] MEDS ORDERED: Famotidine/PF 20 mg/2ml Vial ONE (11:54)
[2020-06-02] MEDS ORDERED: Fentanyl 100 MCG/2 ML VIAL ONE (12:52)
[2020-06-02] MEDS ORDERED: Lidocaine 2% Jelly 5 ML TUBE ONE (12:52)
[2020-06-02] MEDS ORDERED: Midazolam HCl 2 mg/2 ml Vial ONE (12:52)
[2020-06-02] MEDS ORDERED: Bupivacaine/Epinephrine 0.25% 30 ML VIAL ONE (13:42)
[2020-06-02] MEDS ORDERED: Promethazine HCl 25 MG/ML VIAL IM PRN (13:46)
[2020-06-02] MEDS ORDERED: Ondansetron HCl/PF 4 MG/2 ML Vial IVP PRN (13:46)
[2020-06-02] MEDS ORDERED: Promethazine HCl 25 MG/ML VIAL SLOW IVP PRN (13:46)
--- NOTE | 2020-06-02 19:28 | OP ---
DATE OF PROCEDURE: 06/02/2020 PREOPERATIVE DIAGNOSIS: Diffuse lymphadenopathy. POSTOPERATIVE DIAGNOSIS: Diffuse lymphadenopathy. PROCEDURES PERFORMED: Excision of right axillary lymph node. ANESTHESIA: General. ESTIMATED BLOOD LOSS: Minimal. COMPLICATIONS: None. SPECIMENS: Right axillary node. DESCRIPTION OF PROCEDURE: The patient was taken to operating room and laid supine on the operating room table. After general anesthetic was obtained, the right axilla was shaved, prepped, and draped in a sterile fashion. A curved incision was made along the inferior hairline of the right axilla. Cautery was used to dissect down through clavipectoral fascia. A large mass of lymph node was encountered. A portion of one of the larger lymph nodes was taken using cautery. The residual lymph node bed was cauterized until no more bleeding. The specimen was sent to Path for final diagnosis. The wound was irrigated. Local anesthetic was applied. The wound was closed using 3-0 Vicryl, 4-0 Monocryl, and Dermabond. The patient was sent to Recovery in stable condition. All instrument counts, needle counts, and lap counts were correct. Job ID: [id number]
--- NOTE | 2020-06-02 20:42 | DIS ---
DATE OF ADMISSION: 05/30/2020 DATE OF DISCHARGE: 06/02/2020 DISCHARGE DIAGNOSES: 1. Suspected lymphoma ( new diagnosis) 2. Transaminitis. 3. Acute pharyngitis. 4. Leukocytosis, likely secondary to lymphoma. BRIEF HISTORY OF PRESENT ILLNESS: This is a 59-year-old male with a past medical history of tobacco abuse, who presented to the emergency room with generalized malaise, epigastric discomfort, and pharyngitis. The patient also reported odynophagia. He had been taking Augmentin for his pharyngitis, but came to the emergency room due to severe left-sided abdominal pain that was so intense that the patient felt like he had to crawl on the floor. When he presented to the emergency room, had a CT scan of his abdomen, which showed extensive lymphadenopathy and splenomegaly. Abdominal ultrasound showed dwayne hepatic lymphadenopathy suspicious for lymphoma. CT scan of his neck showed diffuse bilateral lymphadenopathy. The patient was admitted for further workup. HOSPITAL COURSE: Possible new diagnosis of lymphoma: Oncology was consulted and patient underwent a flow cytometry on 05/30, which is currently pending. Surgery was consulted and the patient underwent a biopsy of right-sided axillary lymph node. The patient will be discharged and will follow up with Oncology later this week regarding biopsy results. He was discharged with Zofran, bisacodyl suppository and hydrocodone tablets for abdominal pain. Acute pharyngitis: The patient was noted to have white pharyngeal exudates with bilateral tonsillar swelling. He did receive four days of Unasyn while in the hospital. I did not see any tonsillar swelling on the day of discharge. He was discharged with Augmentin for 2 additional days to complete a 7-day course of antibiotics. Constipation: The patient was discharged with suppository as needed. He did have a bowel movement on the day of discharge. Transaminitis: patient had elevated LFTS. CT abdomen showed no gallbladder pathology. This may be from lymphoma, consider repeating LFTs as an outpatient Tobacco abuse: The patient was discharged with a nicotine patch. DISCHARGE PHYSICAL EXAMINATION: VITAL SIGNS: Temperature 97.7, HR 88, RR 18, O2 saturation 93% on room air, BP 162/76. GENERAL: The patient is alert and oriented x3. CVS: Regular rate and rhythm with no murmurs, rubs, or gallops. LUNGS: Clear to auscultation bilaterally. ABDOMEN: He has mild left lower quadrant tenderness on exam. NECK: The patient has bilateral lymphadenopathy on the neck, which is palpable. THROAT: No significant pharyngeal erythema or swelling noted. EXTREMITIES: No edema. PERTINENT LABORATORY DATA: 1. CBC 06/02: White count 15.3, hemoglobin 14.9, hematocrit 44.3, platelet count 82. 2. BMP 06/02: Normal. 3. LFTs 06/01: AST 103, ALT 279, alkaline phosphatase 823. IMAGING: CT soft tissue neck: Diffuse bilateral pathologic cervical, mediastinal, macular lymphadenopathy. Malignant neoplastic process highly suspected especially lymphoma. Enlargement of bilateral palatine tonsils, right side asymmetrically much larger than left. Right upper quadrant ultrasound: Portal hepatic lymphadenopathy suspicious for lymphoma/metastatic disease. CT of abdomen and pelvis: Enlarged lymph nodes in the gastrohepatic ligament, mildly enlarged mesenteric lymph nodes and enlarged aortocaval lymph nodes. Extensive mediastinal lymphadenopathy with enlarged right peritracheal lymph node, enlarged right and left axillary lymph nodes. DISCHARGE CONDITION: Stable. ACTIVITY: As tolerated. DIET: Regular diet. DISCHARGE MEDICATIONS: 1. Augmentin 875-125 mg one tablet each p.o. b.i.d. 2. Bisacodyl 10 mg p.o. daily p.r.n. 3. Nicotine patch one patch TD daily. 4. Zofran. 5. Hydrocodone prescribed by surgeon. DISCHARGE INSTRUCTIONS: The patient needs to follow up flow cytometry results and axillary lymph node biopsy results. He should have his liver enzymes rechecked in a week. Please follow up with primary care doctor and Oncology this week. Job ID: [id number] [facility]
[2020-06-04 10:14] LABS: CMV IgG AB Greater than 10.00 U/mL (0.00-0.59)
== END 2020-06-02 17:15 | disposition home or self-care (01) | DRG 825 ==
LOC: ERS 06:40 → ONC 09:18
PROVIDERS: ADMIT Internal Medicine; ATTEND Internal Medicine
PROC: 07B50ZZ Excision of Right Axillary Lymphatic, Open Approach (ICD-10-PCS; principal; 2020-06-02)
DX: C85.94 Non-Hodgkin lymphoma, unspecified, lymph nodes of axilla and upper limb (principal); K21.9 Gastro-esophageal reflux disease without esophagitis; R74.0 Nonspecific elevation of levels of transaminase and lactic acid dehydrogenase [LDH]; J02.9 Acute pharyngitis, unspecified; D69.6 Thrombocytopenia, unspecified; Z20.828 Contact with and (suspected) exposure to other viral communicable diseases; Z79.01 Long term (current) use of anticoagulants; R79.89 Other specified abnormal findings of blood chemistry; K59.00 Constipation, unspecified; R16.2 Hepatomegaly with splenomegaly, not elsewhere classified
CPT/HCPCS: 36415; 70491; 71260; 74177; 76705; 80048; 80053; 81003; 81015; 82550; 83605; 83615; 83690; 84145; 84550; 85025; 85060; 85610; 86644; 86645; 87389; 87635; 87798; 88184; 88307; 88341; 88342; 88360; 94760; 96374; 96375; 96376; C9113; J0295; J1100; J2250; J2270; J2405; J2550; J2704; J2765; J3010; J3490; Q9967; S0028; U0003

== ENCOUNTER 2020-06-11 13:18 | Outpatient (CLI) | payer BC | END 2020-06-11 13:19 | disposition home or self-care (01) | LOC: ULT 13:18 | PROVIDERS: ATTEND Internal Medicine Hematology & Oncology | DX: Z51.11 Encounter for antineoplastic chemotherapy (principal); C83.11 Mantle cell lymphoma, lymph nodes of head, face, and neck; Z79.899 Other long term (current) drug therapy | CPT/HCPCS: 93306 ==

== ENCOUNTER 2022-01-25 07:07 | Emergency (ER) | payer BC ==
[2022-01-25] MEDS ORDERED: Naloxone HCl 0.4 mg/ml Vial ONE (07:18)
[2022-01-25] MEDS ORDERED: Sodium Bicarb 50 MEQ/50 ML Abboject 8.4% SYRINGE ONE (07:18)
[2022-01-25] MEDS ORDERED: EPINEPHrine 1 MG/10 ML Abboject SYRINGE ONE (07:18)
[2022-01-25] MEDS ORDERED: Calcium Chloride 1 GM/10 ML Abboject SYRINGE ONE (07:23)
[2022-01-25] MEDS ORDERED: ALTEPLASE (TPA) 50 MG/50 ML VIAL ONE (07:25)
== END 2022-01-25 07:36 | disposition expired ==
LOC: ERS 07:07
DX: I46.9 Cardiac arrest, cause unspecified (principal); J96.00 Acute respiratory failure, unspecified whether with hypoxia or hypercapnia; F17.210 Nicotine dependence, cigarettes, uncomplicated; C85.90 Non-Hodgkin lymphoma, unspecified, unspecified site; I25.2 Old myocardial infarction
CPT/HCPCS: 31500; 36556; 36680; 92950; J0171; J2310; J2997